=== PATIENT | female | born 1980 | race Caucasian/White ===

== ENCOUNTER → 2024-02-17 17:04 | Outpatient (REF) | payer OTHER, SELFPAY | LOC: WDC 17:04 | PROVIDERS: ATTENDING PHYSICIAN Physician Assistant Surgical; FAMILY PHYSICIAN Family Medicine | DX: Z12.31 Encounter for screening mammogram for malignant neoplasm of breast (principal) | CPT/HCPCS: 77063; 77067 ==

== ENCOUNTER → 2024-02-25 09:23 | Outpatient (REF) | payer OTHER, SELFPAY | LOC: WDC 09:23 | PROVIDERS: ATTENDING PHYSICIAN Physician Assistant Surgical; FAMILY PHYSICIAN Family Medicine | DX: R92.8 Other abnormal and inconclusive findings on diagnostic imaging of breast (principal) | CPT/HCPCS: 76642 ==

== ENCOUNTER → 2024-02-27 10:41 | Outpatient (REF) | payer OTHER, SELFPAY | LOC: RAD 10:41 | PROVIDERS: ATTENDING PHYSICIAN Internal Medicine Endocrinology, Diabetes & Metabolism; FAMILY PHYSICIAN Family Medicine | DX: E89.0 Postprocedural hypothyroidism (principal); C73 Malignant neoplasm of thyroid gland | CPT/HCPCS: 76536 ==

== ENCOUNTER → 2024-08-30 13:54 | Outpatient (REF) | payer OTHER, SELFPAY | LOC: WDC 13:54 | PROVIDERS: ATTENDING PHYSICIAN Surgery; FAMILY PHYSICIAN Family Medicine | DX: R92.8 Other abnormal and inconclusive findings on diagnostic imaging of breast (principal) | CPT/HCPCS: 76642 ==

== ENCOUNTER 2024-12-02 18:11 | Emergency (ER) | payer OTHER, SELFPAY ==
[2024-12-02 18:27] VITALS: BMI 32.3
--- NOTE | 2024-12-02 21:43 | ED.SKININJ ---
HPI-Injury
General
Chief Complaint: Bite
Source: patient
Exam Limitations: none
Time Seen by Provider: 12/02/24 21:40
Nursing documentation reviewed up to this point in time: agreed with
History of Present Illness-Injury
Is this injury a work related problem?: No
Is pt an associate of [facility]?: No
Initial Injury comments:
44-year-old female with no past medical history presents emergency department today with concerns of a cat bite to her left hand. This occurred yesterday. She reports that there was a stray cat in her yard that looked friendly and she went to go
pet it. Patient states that it was playing with her for period time but then it went to go bite her on her left hand and it ran away. Patient saw her primary care provider yesterday who started her on Augmentin. Patient states that her PCP told
her to go to the emergency department for rabies vaccine. Other than some pain and swelling in her hand, patient has no other she has no fevers or chills. She has no nausea or vomiting. She denies any redness or streaking up the arm. She denies
any lymphadenopathy.
Review of Systems
Review of Systems
All Other Systems: ROS reviewed and negative except as documented in HPI and ROS
Phy Exam
Physical Exam
Physical Exam:
General: Patient is well appearing and in no acute distress; non-toxic
Skin: Erythema noted to the dorsum of the left hand with 2 puncture wounds noted, no redness or streaking up the arm, no palpable lymphadenopathy
Head: Normocephalic, atraumatic
Eyes: Sclera non-icteric. EOMs intact.
Cardiac: Regular rate
Peripheral Vascular: No lower extremity swelling or edema. Brisk capillary refill.
Pulm: Normal respiratory effort
Musculoskeletal: Full range of motion of left upper extremity no bony tenderness to palpation
Neuro: CN II-XII intact, no focal neurologic deficits. Sensation intact.
Psychiatric: Appropriate mood and affect.
Course
Orders/Labs/Results
Orders:
Orders
12/02/24 22:11
Rabies Immune Globulin/Pf [HyperRAB] 1,762 unit IM NOW STA
12/02/24 22:30
Rabies Vaccine (Pcec)/Pf [Rabavert Rabies Vacc W-Diluent] 2.5 unit IM .ONCE ONE
Vital Signs
Initial and Last Documented VS:
Initial Vital Signs
Pulse Resp BP Pulse Ox
86 18 117/81 98
12/02/24 22:37 12/02/24 22:37 12/02/24 22:37 12/02/24 22:37
Last Documented Vital Signs
Pulse Resp BP Pulse Ox
80 18 120/83 98
12/02/24 23:32 12/02/24 23:32 12/02/24 23:32 12/02/24 23:32
MDM/Problems Addressed
Differential Diagnosis Includes:
Cellulitis, erysipelas, puncture wound, abrasion, need for rabies prophylaxis
MDM/Problems Addressed:
44-year-old female presents emergency department today with concerns of a cat bite. She got bitten on her left hand. On exam there is 2 puncture wounds noted with surrounding erythema and swelling. Patient has full range of motion of her left
lower extremity and of the digits. No concern for flexor tenosynovitis or any spreading of the infection at this time. Patient was already started on Augmentin by her primary care provider. Patient is up-to-date on her tetanus. Patient was given
rabies immunoglobulin as well as rabies vaccination today. Patient given follow-up instructions and prescription to get subsequent dosing at the outpatient fusion center. Patient stable for discharge.
Chronic conditions affecting care:
N/A N/A
*Pulse Oximetry
Patient hypoxic: no
*Critical Care Note
Total Time (30-74mins, 75-104mins- exclusive of procedures): Not Applicable
Patient Management
Escalation/DeEscalation of care consider admission/obs:
Admit not indicated, patient reviewed with my attending
ED Attending Note
-
Portions of this chart may have been created with voice recognition software.� Occasional wrong word or��sound alike� substitutions may have occurred due to the inherent limitations of voice recognition software.
Discharge Plan
Departure
Patient Disposition: Home (Routine Discharge)
Date of Disposition: 12/03/24
Time of Disposition: 00:15
Patient with high blood pressure during this ER visit?: No
Condition: Good
Discharge Problem:
Need for post exposure prophylaxis for rabies, Cat bite
Instructions: Animal and human bites, BLOOD PRESSURE, Rabies
Prescriptions:
New
RabAvert (PF) 2.5 unit suspension for reconstitution
2.5 unit IM ONCE Qty: 3 0RF
Referrals:
Arjun Morton, DO [Family Provider] -
Stand Alone Forms: Rabies Vaccine Post Exp Dosing
Activity Restrictions/Additional Instructions:
You will need 3 additional rabies vaccines on day 3, 7, and 14. Today is day 0. Please see the dosing schedule. Day 3 is on FridayDecember 05 when the infusion center will be closed---please report to the emergency department to receive that dose of
the vaccine.
Please call [phone] which is the number for the outpatient infusion center to schedule appointments to get your subsequent doses. Please bring the prescription with you to the infusion center.
Please continue Augmentin.
Please return emergency department should you develop any streaking or redness of the arm, any swollen lymph nodes, any fevers or chills, any chest pain, shortness of breath, nausea or vomiting, purulent drainage from your hand, inability to move
the hand, or any other signs or symptoms worrisome to you.
Interventions
Interventions:
*Risk Screen - Suicide Last Done: 12/02/24 19:23
*General Assessment Last Done: 12/02/24 19:23
*Neglect/Abuse Screening Last Done: 12/02/24 19:23
*ED COVID-19 Vaccine History Last Done: 12/02/24 19:23
*Nursing Disposition Last Done: 12/02/24 23:32
ED-Skin Assessment Last Done: 12/02/24 19:23
Discharge Date and Time
Discharge Date/Time: 12/03/24 00:27
Print Language: SERBIAN
[2024-12-02] MEDS: RABAVERT RABIES VACC W-DILUENT 2.5 UNIT IM (22:32)
[2024-12-02 22:37] VITALS: BP 117/81
[2024-12-02] MEDS: HyperRAB 1762 UNIT IM (22:58)
[2024-12-02 23:32] VITALS: BP 120/83
== END 2024-12-03 00:27 | disposition home or self-care (01) ==
LOC: EMR 18:11
PROVIDERS: EMERGENCY PHYSICIAN Emergency Medicine; FAMILY PHYSICIAN Family Medicine
DX: S61.432A Puncture wound without foreign body of left hand, initial encounter (principal); W55.01XA Bitten by cat, initial encounter; Z23 Encounter for immunization; Z29.14 Encounter for prophylactic rabies immune globulin
CPT/HCPCS: 90471; 96372; 99284; 90375; 90675

== ENCOUNTER 2024-12-16 14:30 | Outpatient (RCR) | payer OTHER, SELFPAY ==
[2024-12-06 15:07] VITALS: BP 134/81
[2024-12-06] MEDS: RABAVERT RABIES VACC W-DILUENT 2.5 UNIT IM (15:26)
[2024-12-09 15:00] VITALS: BP 117/83
[2024-12-09] MEDS: RABAVERT RABIES VACC W-DILUENT 2.5 UNIT IM (15:27)
[2024-12-16 15:10] VITALS: BP 133/86
[2024-12-16] MEDS: RABAVERT RABIES VACC W-DILUENT 2.5 UNIT IM (15:23)
== END 2024-12-17 09:03 | disposition home or self-care (01) ==
LOC: OID 14:30
PROVIDERS: ATTENDING PHYSICIAN Physician Assistant; FAMILY PHYSICIAN Family Medicine
DX: Z20.3 Contact with and (suspected) exposure to rabies (principal); Z23 Encounter for immunization
CPT/HCPCS: 90471; 90675